=== PATIENT | male | born 1960 | race Caucasian/White ===

== ENCOUNTER 2016-12-31 21:48 | Emergency (ER) | payer MEDICAID ==
[~2016-12-31] VITALS: Ht 170.2 cm; Wt 98.0 kg
[~2016-12-31 21:48] MED LIST: ASPI-524 PO; ATOR80TA63 PO; CLOP75TA2 PO; CLOP75TA32 PO; GLIP10TA11 PO; INSU100V SQ; INSU100V26 SUBCUT; INSU100V9 SUBCUT; LIP80 PO; LISI-600 PO; LISI-694 PO; METO50TA3 PO; MULT-950 PO; OMEG1CAP10 PO; PRO40 PO; TRAM50TA92 PO; VITA1CAP PO
[2016-12-31 22:00] VITALS: BP 153/113; PULSE 85; RESP 18; TEMP 97.3; O2SAT 96
[2016-12-31] MEDS ORDERED: NACL 0.9% 1,000 ML IV ONE ×3 (22:23→23:00)
[2016-12-31] MEDS ORDERED: ONDANSETRON HCL 4 MG/2 ML VIAL IVP ONE (22:30)
[2016-12-31] MEDS ORDERED: PANTOPRAZOLE SODIUM 40 MG/VIAL (PROTONIX) IVP ONE (22:45)
[2016-12-31 23:00] VITALS: PULSE 78
[2016-12-31 23:08] LABS: BASOPHILS # (AUTO) 0.1 K/uL (0.0-0.2); EOSINOPHILS # (AUTO) 0.2 K/uL (0.0-0.4); EOSINOPHILS % (AUTO) 1.8 % (0.0-4.0); LYMPHOCYTES # (AUTO) 1.3 K/uL (1.0-5.5); MEAN CORPUSCULAR HGB CONC 33 % (32-36)
[2016-12-31 23:11] LABS: CALCIUM 8.4 mg/dL (8.4-11.0); CREATININE 4.66 mg/dL (0.55-1.30); POTASSIUM 4.7 mmol/L (3.5-5.1)
[2016-12-31 23:12] LABS: MEAN CORPUSCULAR HEMOGLOBIN 25 pg (27-31); MEAN CORPUSCULAR VOLUME 76 fL (79.0-98.0)
[2016-12-31 23:13] LABS: PROTHROMBIN TIME 11.2 SECS (9.5-12.5)
[2016-12-31 23:15] LABS: ALBUMIN 3.1 g/dL (3.4-4.8); TOTAL BILIRUBIN 0.3 mg/dL (0.0-1.0); TOTAL PROTEIN, SERUM 7.3 g/dL (6.4-8.3)
[2016-12-31 23:28] LABS: HEMOGLOBIN 11.5 g/dL (14.0-18.0); WHITE BLOOD COUNT (AUTO) 10.3 K/uL (4.8-10.8)
[2016-12-31 23:29] LABS: BASOPHILS % (AUTO) 0.9 % (0.0-2.0); LYMPHOCYTES % (AUTO) 13.1 % (20.5-51.5); MONOCYTES # (AUTO) 0.5 K/uL (0.0-1.0); MONOCYTES % (AUTO) 4.4 % (1.7-9.3); NEUTROPHILS # (AUTO) 8.2 K/uL (1.8-7.7); NEUTROPHILS % (AUTO) 79.8 % (40.0-70.0); PLATELET COUNT (AUTO) 263 K/uL (130-430)
[2016-12-31 23:46] LABS: BILIRUBIN,URINE NEGATIVE (NEGATIVE); BLOOD, URINE 1+ (NEGATIVE); CLARITY/URINE CLEAR (CLEAR); COLOR,URINE YELLOW (YELLOW); GLUCOSE,URINE 2+ (NEGATIVE); KETONES,URINE NEGATIVE (NEGATIVE); LEUKOCYTE ESTERASE ,URINE NEGATIVE (NEGATIVE); NITRITE, URINE NEGATIVE (NEGATIVE); PROTEIN URINE 3+ (NEGATIVE); UROBILINOGEN,URINE 0.2 (0.2-1.0)
[2016-12-31 23:55] VITALS: BP 132/77; RESP 18; TEMP 97.3; O2SAT 96
[2016-12-31 23:56] LABS: BACTERIA,URINE RARE /HPF (None Seen); MUCUS,URINE None Seen /LPF (None Seen); RBC,URINE 0-3 /HPF (0-3); WBC,URINE 0-3 /HPF (0-3)
== END 2016-12-31 23:55 | disposition left against medical advice (07) ==
LOC: SED 21:49
DX: K52.9 Noninfective gastroenteritis and colitis, unspecified (principal); E86.0 Dehydration; R07.89 Other chest pain; I10 Essential (primary) hypertension; E11.29 Type 2 diabetes mellitus with other diabetic kidney complication; N28.9 Disorder of kidney and ureter, unspecified; E78.5 Hyperlipidemia, unspecified; K21.9 Gastro-esophageal reflux disease without esophagitis; N19 Unspecified kidney failure; Z95.1 Presence of aortocoronary bypass graft; Z79.4 Long term (current) use of insulin
CPT/HCPCS: 36415; 74176; 80053; 81000; 83605; 83690; 84484; 85025; 85610; 87040; 89055; 93005; 96361; 96374; 96375; 99285; C9113; J2405; J7030

== ENCOUNTER 2017-12-14 16:38 | Emergency (ER) | payer OTHER, MEDICARE ==
[~2017-12-14] VITALS: Ht 170.2 cm; Wt 90.7 kg
[~2017-12-14 16:38] MED LIST changes: -ATOR80TA63 PO; -CLOP75TA32 PO; -INSU100V26 SUBCUT; -LISI-694 PO
[2017-12-14 16:47] VITALS: BP_SYST 137
[2017-12-14] MEDS ORDERED: MORPHINE 4 MG/ML INJ. SYRINGE IM ONE (17:45)
[2017-12-14 18:19] VITALS: BP_SYST 137
== END 2017-12-14 18:19 | disposition home or self-care (01) ==
LOC: SED 16:38
DX: I82.622 Acute embolism and thrombosis of deep veins of left upper extremity (principal); E78.5 Hyperlipidemia, unspecified; E11.9 Type 2 diabetes mellitus without complications; K21.9 Gastro-esophageal reflux disease without esophagitis; I10 Essential (primary) hypertension; F17.200 Nicotine dependence, unspecified, uncomplicated; Z95.1 Presence of aortocoronary bypass graft; Z79.4 Long term (current) use of insulin; Z79.899 Other long term (current) drug therapy
CPT/HCPCS: 96372; 99283; J2270

== ENCOUNTER 2018-08-14 01:36 | Inpatient (IN) | payer OTHER, MEDICAID ==
[~2018-08-14] VITALS: Ht 170.2 cm; Wt 90.4 kg
[2018-08-14] VITALS (20 sets, daily range): BP systolic 117–170
[~2018-08-14 01:36] MED LIST changes: +FISH OIL 1,01 CAP.EC PO; +METO50TA16 PO; -METO50TA3 PO; -OMEG1CAP10 PO
--- NOTE | 2018-08-14 01:36 | NUR ---
Pt BIB ALS from home with c/o mid sternal C/P that onset 1 hour ago and woke him from his sleep. Pt also c/o SOB with N/V, vomited 2-3 episodes. No vomiting, No SOB, non diaphoretic upon arrival. Pt leans to his left to help with his pain. Pt receives hemodialysis on MWF, but states that he hasn't dialyzed in 2 months as he can make urine. Abdomen round, tight, grossly distended.
[2018-08-14] MEDS ORDERED: NITROGLYCERIN 250 ML IV ONE ×2 (02:00→02:45)
[2018-08-14] MEDS ORDERED: ASPIRIN 81 MG TAB.CHEW PO ONE (02:00)
[2018-08-14] MEDS ORDERED: MORPHINE 4 MG/ML INJ. SYRINGE IVP ONE ×2 (02:00→03:15)
[2018-08-14 02:31] LABS: BASOPHILS # (AUTO) 0.1 K/uL (0.0-0.2); BASOPHILS % (AUTO) 0.7 % (0.0-2.0); EOSINOPHILS # (AUTO) 0.2 K/uL (0.0-0.4); EOSINOPHILS % (AUTO) 1.9 % (0.0-4.0); HEMATOCRIT 36.8 % (36-54); HEMOGLOBIN 12.1 g/dL (14.0-18.0); LYMPHOCYTES # (AUTO) 1.1 K/uL (1.0-5.5); LYMPHOCYTES % (AUTO) 13.4 % (20.5-51.5); MEAN CORPUSCULAR HEMOGLOBIN 27 pg (27-31); MEAN CORPUSCULAR HGB CONC 33 % (32-36); MEAN CORPUSCULAR VOLUME 82 fL (79.0-98.0); MONOCYTES # (AUTO) 0.6 K/uL (0.0-1.0); MONOCYTES % (AUTO) 7.3 % (1.7-9.3); NEUTROPHILS # (AUTO) 6.2 K/uL (1.8-7.7); NEUTROPHILS % (AUTO) 76.7 % (40.0-70.0); RED BLOOD CELL COUNT(AUTO) 4.48 MIL/uL (4.2-6.2); RED CELL DISTRIBUTION WIDTH 14.8 % (9.0-15.0); WHITE BLOOD COUNT (AUTO) 8.2 K/uL (4.8-10.8)
[2018-08-14 02:35] LABS: CALCIUM 8.3 mg/dL (8.4-11.0); CREATININE 6.7 mg/dL (0.55-1.30); POTASSIUM 4.4 mmol/L (3.5-5.1)
[2018-08-14 02:41] LABS: ALBUMIN 2.6 g/dL (3.4-4.8); TOTAL BILIRUBIN 0.7 mg/dL (0.0-1.0)
--- NOTE | 2018-08-14 02:41 | NUR ---
B/P 180/107, HR 74, pain 9/10. Pt medicated with Morphine 4 mg IVP, Nitrogylcerin 50mg/250mL drip started at 40 mcg/min (12 mL/hr) per MD order to keep SBP > 100.
[2018-08-14 02:49] LABS: INR 1.2 (0.80-1.20); PROTHROMBIN TIME 11.9 SECS (9.5-12.5)
--- NOTE | 2018-08-14 02:49 | NUR ---
Pt at bedside to bring home medications. Updated on POC.
[2018-08-14 02:55] LABS: PLATELET COUNT (AUTO) 212 K/uL (130-430)
--- NOTE | 2018-08-14 03:05 | NUR ---
Note brentone in EDM - 08/14/18 at 0325 by [email or web address] Pt continues to c/o mid chest pain at 04/27. Dr. Phelps informed. NTG drip increased to 50 mcg/min, to be medicated with Morphine 4 mg IVP.
--- NOTE | 2018-08-14 03:05 | NUR ---
Pt continues to c/o mid chest pain at 04/27. Dr. Phelps informed. NTG drip increased to 50 mcg/min, to be medicated with Morphine 4 mg IVP.
[2018-08-14] MEDS ORDERED: ASPIRIN 81 MG TAB.CHEW ONE (03:13)
[2018-08-14] MEDS ORDERED: TAMS-11 PO (03:21)
[2018-08-14] MEDS ORDERED: ERGO500020 PO (03:22)
[2018-08-14] MEDS ORDERED: FURO80TA86 PO (03:23)
[2018-08-14] MEDS ORDERED: METO5TAB8 PO (03:25)
[2018-08-14] MEDS ORDERED: LOSA25TA11 PO (03:27)
--- NOTE | 2018-08-14 03:30 | NUR ---
Pt resting quietly, even and non-labored respirations, NAD.
[2018-08-14] MEDS ORDERED: METO-542 PO (03:31)
[2018-08-14] MEDS ORDERED: FENO160 PO (03:36)
[2018-08-14] MEDS ORDERED: FOLI-43 PO (03:39)
[2018-08-14] MEDS ORDERED: FERR-31 PO (03:42)
[2018-08-14] MEDS ORDERED: FLUT9.9S NS (03:52)
[2018-08-14] MEDS ORDERED: NITSL SL (03:54)
--- NOTE | 2018-08-14 04:00 | NUR ---
Resting quietly, even and non-labored respirations. NTG drip continues to infuse to patent PIV RHA. NAD.
--- NOTE | 2018-08-14 04:26 | NUR ---
X-ray at bedside.
--- NOTE | 2018-08-14 04:44 | NUR ---
Pt resting quietly with eyes closed, even and non-labored respirations, VSS.
[2018-08-14] MEDS ORDERED: FUROSEMIDE 40 MG/4 ML VIAL IVP ONE (05:00)
--- NOTE | 2018-08-14 05:25 | NUR ---
Patient will be admitted to care of Dr. Cook. Admitted to ICU unit. Will go to room 3. Summary report printed. Report will be given at bedside.
--- NOTE | 2018-08-14 05:45 | NUR ---
RECEIVED PT VIA NATASHA FROM ER, ALERT, ORIENTED AND COOPERATIVE.HAS IV , NITROGLYCERINE DRIP INFUSING VIA RT HAND AT 50 MCG/MIN.TRANSFERRED SELF TO BED, AND ROUTINE ADM CARE DONE.DENIES ANY CHEST PAIN THIS TIME.
[2018-08-14] MEDS: INSULIN REGULAR, HUMAN 100 UNITS/ML, 10 ML VIAL (novoLIN R) SUBCUT PRN ×4 (06:51→21:14)
--- NOTE | 2018-08-14 07:31 | NUR ---
Called Dr. Clark with a consult, spoke with Philippe from the exchange
--- NOTE | 2018-08-14 07:49 | NUR ---
Called Dr. Gibson with a consult, spoke with Yoon from the exchange Dr. Hattie Sheldon hooker on today
--- NOTE | 2018-08-14 07:50 | NUR ---
OPENING NOTE Patient received laying down and is SOB while attempting to move. Assisted with repositioning in an upright position. Patient is alert and oriented. Patient has a right hand peripheral IV 20 gauge infusing Nitroglycerin @ 50 mcg/min. Cardiac rhythm is NSR with PVCs. No chest discomfort reported. Pain mostly felt while getting himself on the right side. Patient on a CCHO diet. Tray has been served. Skin intact but very dry and has pimple-like spots all over his body. HOB raised, bed at lowest position, call in reach.
--- NOTE | 2018-08-14 08:05 | NUR ---
Patient asks to stand up to void. Patient was given a urinal. Sample collected and taken to lab.
--- NOTE | 2018-08-14 08:25 | NUR ---
Dr. Cook Rounds Dr. Cook at bedside. Patient struggles to breathe and had noticeable shayne on the monitor. O2 2L by NC ordered and carried out.
[2018-08-14] MEDS ORDERED: traMADol HCL HCL 50 MG TABLET (ULTRAM) PO PRN (08:30)
[2018-08-14] MEDS ORDERED: NON-FORMULARY MEDICATION (Ergocalciferol (Vitamin D2) (Vitamin D2) 50,000 UNIT) PO SCH (08:30)
[2018-08-14] MEDS ORDERED: NITROGLYCERIN 0.4 MG TAB.SUBL SL PRN (08:30)
--- NOTE | 2018-08-14 08:37 | NUR ---
Dr. Chavarria aware of consult(acidosis, resp insuff)
--- NOTE | 2018-08-14 08:40 | NUR ---
ADOPTION SERVICES MANAGER Dr. Chavarria at bedside for evaluation.
[2018-08-14] MEDS ORDERED: IPRATROPIUM BROM 0.5 MG/2.5 ML VIAL.NEB (ATROVENT) INH PRN (08:45)
[2018-08-14] MEDS ORDERED: MAGNESIUM SULFATE 50 ML IV PRN (08:45)
[2018-08-14] MEDS ORDERED: ALBUTEROL SULFATE 0.083% 2.5 MG/3 ML VIAL.NEB INH PRN (08:45)
[2018-08-14] MEDS ORDERED: MORPHINE 4 MG/ML INJ. SYRINGE IVP PRN ×2 (08:45)
[2018-08-14] MEDS ORDERED: DOCUSATE SODIUM 100 MG CAPSULE PO PRN (08:45)
[2018-08-14] MEDS ORDERED: ACETAMINOPHEN 325 MG TABLET PO PRN (08:45)
[2018-08-14] MEDS ORDERED: LORazepam 2 MG/ML VIAL IVP PRN (08:45)
[2018-08-14] MEDS ORDERED: ONDANSETRON HCL 4 MG/2 ML VIAL IVP PRN (08:45)
[2018-08-14] MEDS ORDERED: POTASSIUM CHLORIDE 20 MEQ TAB.PRT.SR PO PRN (08:45)
[2018-08-14] MEDS ORDERED: methylPREDNISolone SOD SUCC 40 MG/ML VIAL IVP ONE (08:45)
[2018-08-14] MEDS ORDERED: ZOLPIDEM TARTRATE 5 MG TABLET PO PRN (08:45)
[2018-08-14] MEDS ORDERED: MUPIROCIN 2% TOPICAL OINTMENT 22 GM NS PRN (08:45)
[2018-08-14 08:52] LABS: BILIRUBIN,URINE NEGATIVE (NEGATIVE); BLOOD, URINE 2+ (NEGATIVE); CLARITY/URINE CLEAR (CLEAR); COLOR,URINE YELLOW (YELLOW); GLUCOSE,URINE 2+ (NEGATIVE); KETONES,URINE NEGATIVE (NEGATIVE); LEUKOCYTE ESTERASE ,URINE NEGATIVE (NEGATIVE); NITRITE, URINE NEGATIVE (NEGATIVE); PH,URINE 5.5 (5.0-8.0); PROTEIN URINE 3+ (NEGATIVE); UROBILINOGEN,URINE 0.2 (0.2-1.0)
[2018-08-14] MEDS ORDERED: ASPIRIN 81 MG TAB.CHEW PO SCH (09:00)
[2018-08-14 09:06] LABS: BACTERIA,URINE FEW /HPF (None Seen); MUCUS,URINE None Seen /LPF (None Seen); RBC,URINE 0-3 /HPF (0-3); WBC,URINE 0-3 /HPF (0-3)
[2018-08-14] MEDS: FUROSEMIDE 40 MG/4 ML VIAL IVP SCH (09:37)
[2018-08-14] MEDS: FERROUS SULFATE 325 MG TABLET.DR PO SCH ×2 (09:42→20:57)
[2018-08-14] MEDS: FLUTICASONE PROPIONATE 50 mCg/SPRAY 16 GM NS SCH (09:42)
[2018-08-14] MEDS: ATORVASTATIN 20 MG TABLET PO SCH (09:42)
[2018-08-14] MEDS: FOLIC ACID 1 MG TABLET PO SCH (09:43)
[2018-08-14] MEDS: FENOFIBRATE 160 MG TABLET PO SCH (09:44)
[2018-08-14] MEDS: LISINOPRIL 20 MG TABLET PO SCH (09:44)
[2018-08-14] MEDS: CLOPIDOGREL BISULFATE 75 MG TABLET PO SCH (09:44)
[2018-08-14] MEDS: TAMSULOSIN HCL 0.4 MG CAP PO SCH (09:44)
--- NOTE | 2018-08-14 09:44 | NUR ---
TEST. PT HAVING AN ECHOCARDIOGRAM AT THIS HOUR. RESEARCH ADMINISTRATOR CAME OUT OF THE ROOM TO ASK FOR DR ALVARES. RETURNED TO ICU, LOOKED INTO PT'S ECHOCARDIOGRAM MONITOR. AWARE OF EJECTION FRACTION REPORT.
[2018-08-14] MEDS: METOLAZONE 5 MG TABLET PO SCH (09:45)
[2018-08-14] MEDS: HEPARIN SODIUM,PORCINE 5000 UNITS/ML VIAL SUBCUT SCH ×2 (09:48→21:18)
[2018-08-14] MEDS: cefTRIAXone 1 GM in D5W 50 ML IV SCH (09:51)
--- NOTE | 2018-08-14 11:29 | NUR ---
Nutrition Update Chinedu Scale 16 noted. Pt admitted for ventricular tachycardia. Diet: CCHO, renal BMI: 31.2 kg/m2 RD to follow per nutrition care standards.
--- NOTE | 2018-08-14 16:50 | NUR ---
RN Rounds Patient's at bedside. Answered questions pertaining POC. Patient has SOB upon exertion, but O2 saturation remain within normal limits. Patient remains on 2L O2 by NC. Performed CHG bath with 's assistance. HOB raised > 30 degrees, bed at lowest position, and call light within reach.
[2018-08-14] MEDS: ALBUTEROL SULFATE 0.083% 2.5 MG/3 ML VIAL.NEB INH SCH (19:00)
[2018-08-14] MEDS: IPRATROPIUM BROM 0.5 MG/2.5 ML VIAL.NEB (ATROVENT) INH SCH (19:00)
--- NOTE | 2018-08-14 19:20 | NUR ---
CLOSING NOTE Endorsed patient to Natali JIMENEZ. Patent is asleep comfortably in bed at this time. No distress noted.
--- NOTE | 2018-08-14 19:25 | NUR ---
PM SHIFT ASSESSMENT Pt is alert and oriented. SPO2 via NC sating at 95%. SR noted on monitor. Skin intact. Pt uses urinal to void. IV to right hand SL. Safety precautions in place, call light within reach. Will continue to monitor.
--- NOTE | 2018-08-14 21:50 | NUR ---
PT BELONGINGS Pts came in and brought pt a cell phone airline ticket agent. Will update pt belongings list.
[2018-08-15] VITALS (8 sets, daily range): BP systolic 111–149
[2018-08-15] MEDS: ALBUTEROL SULFATE 0.083% 2.5 MG/3 ML VIAL.NEB INH SCH ×2 (00:30→07:00)
[2018-08-15] MEDS: IPRATROPIUM BROM 0.5 MG/2.5 ML VIAL.NEB (ATROVENT) INH SCH ×2 (00:30→07:00)
--- NOTE | 2018-08-15 05:15 | NUR ---
Pt states, "I do not want dialysis, there is no reason why I just don't want it." Education was provided on benefits and risks. Pt still refuses dialysis treatment to be done today. Will continue to monitor.
[2018-08-15 06:25] LABS: BASOPHILS # (AUTO) 0.1 K/uL (0.0-0.2); EOSINOPHILS % (AUTO) 0.5 % (0.0-4.0); HEMATOCRIT 37.5 % (36-54); HEMOGLOBIN 11.6 g/dL (14.0-18.0); LYMPHOCYTES # (AUTO) 0.8 K/uL (1.0-5.5); MEAN CORPUSCULAR HEMOGLOBIN 27 pg (27-31); MEAN CORPUSCULAR HGB CONC 31 % (32-36); MEAN CORPUSCULAR VOLUME 86 fL (79.0-98.0); MONOCYTES # (AUTO) 0.4 K/uL (0.0-1.0); MONOCYTES % (AUTO) 5.4 % (1.7-9.3); NEUTROPHILS # (AUTO) 5.3 K/uL (1.8-7.7); PLATELET COUNT (AUTO) 193 K/uL (130-430); RED BLOOD CELL COUNT(AUTO) 4.37 MIL/uL (4.2-6.2); RED CELL DISTRIBUTION WIDTH 15.2 % (9.0-15.0); WHITE BLOOD COUNT (AUTO) 6.6 K/uL (4.8-10.8)
[2018-08-15 06:41] LABS: CALCIUM 8.8 mg/dL (8.4-11.0); CREATININE 7.36 mg/dL (0.55-1.30); POTASSIUM 4.8 mmol/L (3.5-5.1)
[2018-08-15 06:55] LABS: ALBUMIN 2.6 g/dL (3.4-4.8); THYROID STIMULATING HORMONE 1.96 uIu/mL (0.36-3.74); TOTAL BILIRUBIN 0.6 mg/dL (0.0-1.0)
--- NOTE | 2018-08-15 07:00 | NUR ---
Pt was asked again if he would like dialysis treatment today, pt stated, "I do not want dialysis, I want my breakfast." Pt educated again on benefits and risks of treatment, however pt still refuses dialysis. Will notify MD and dayshift nurse.
--- NOTE | 2018-08-15 07:30 | NUR ---
ENDORSEMENT Pt care endorsed to BARBARA Lema at bedside using nursing SBAR.
[2018-08-15] MEDS: INSULIN REGULAR, HUMAN 100 UNITS/ML, 10 ML VIAL (novoLIN R) SUBCUT PRN (07:43)
--- NOTE | 2018-08-15 07:45 | NUR ---
AM ASSESSMENT. PT SEEN SITTING UP AT THE EDGE OF HIS BED, STATED "WHERE IS MY BREAKFAST?, NEEDS ATTENDED, TRAY SERVED, PT COMPLAINED OF DISCOMFORT TO HIS LEG, ENCOURAGED TO ELEVATE HIS FEET IN BED AFTER HIS MEAL, ALL OTHER NEEDS MET.
[2018-08-15] MEDS: FLUTICASONE PROPIONATE 50 mCg/SPRAY 16 GM NS SCH (08:26)
[2018-08-15] MEDS: METOLAZONE 5 MG TABLET PO SCH (08:27)
[2018-08-15] MEDS: CLOPIDOGREL BISULFATE 75 MG TABLET PO SCH (08:28)
[2018-08-15] MEDS: TAMSULOSIN HCL 0.4 MG CAP PO SCH (08:28)
[2018-08-15] MEDS: ATORVASTATIN 20 MG TABLET PO SCH (08:28)
[2018-08-15] MEDS: FENOFIBRATE 160 MG TABLET PO SCH (08:28)
[2018-08-15] MEDS: FERROUS SULFATE 325 MG TABLET.DR PO SCH (08:28)
[2018-08-15] MEDS: LISINOPRIL 20 MG TABLET PO SCH (08:29)
[2018-08-15] MEDS: cefTRIAXone 1 GM in D5W 50 ML IV SCH (08:29)
[2018-08-15] MEDS: FOLIC ACID 1 MG TABLET PO SCH (08:29)
--- NOTE | 2018-08-15 08:30 | NUR ---
PAIN. PT MEDICATED WITH TRAMADOL TABLET ORDERED FOR LEG DISCOMFORT.
[2018-08-15] MEDS: FUROSEMIDE 40 MG/4 ML VIAL IVP SCH (08:38)
[2018-08-15] MEDS: HEPARIN SODIUM,PORCINE 5000 UNITS/ML VIAL SUBCUT SCH (08:45)
--- NOTE | 2018-08-15 08:55 | NUR ---
Dr. Cook in to see pt. Explained to patient that he needs dialysis. The patient does not want dialysis at this hospital. Dr. Cook tried to explain the reason. The patient said he is not in the hospital for dialyisis, he is here for something else and that we need to call his PCP and renal doctor. The patient interrupted Dr. Cook many times when he tried to tell the pt that because he needs dialysis is why his heart is acting up. The patient spoke over Dr. Cook the whole time. Dr. Cook told the patient there isn't anything he can do for him, because he needs dialysis today and he can leave and go home against medical advice. The patient said ok.
--- NOTE | 2018-08-15 09:05 | NUR ---
Pt is on the phone calling his to come and pick him up.
--- NOTE | 2018-08-15 09:24 | NUR ---
Pts is here to crop picker pt. Pt has signed AMA paperwork as well as .
--- NOTE | 2018-08-15 09:32 | NUR ---
Dr. Clark in to see pt as he is leaving in the wheelchair. He spoke at length about his need for dialysis and treatment for his heart attack. The patient told Dr. Clark that he didn't know how to treat a heart attack and that he is leaving right now to go get dialysis in [place]. Dr. Clark asked the pts who came to pick him up, if she was taking him to dialysis in [place]. She said it was up to him and then he interrupted and said he was going to speak to his PCP first. The patient had no questions and neither did his . Pt's IV was removed and the pt was discharged to private auto via wheelchair by bedside RN. with pt and will drive him home. The patient expressed no complaints of pain or anything else, other than not wanting to be in this hospital.
[2018-08-15 09:37] LABS: NEUTROPHILS % (AUTO) 81.1 % (40.0-70.0)
== END 2018-08-15 09:32 | disposition left against medical advice (07) | DRG 682 ==
LOC: SED 01:36 → SIC 05:03
PROVIDERS: ADMIT General Practice; ATTEND General Practice
PROC: 5A1D70Z Performance of Urinary Filtration, Intermittent, Less than 6 Hours Per Day (ICD-10-PCS; principal; 2018-08-14)
DX: N17.0 Acute kidney failure with tubular necrosis (principal); I50.43 Acute on chronic combined systolic (congestive) and diastolic (congestive) heart failure; I13.2 Hypertensive heart and chronic kidney disease with heart failure and with stage 5 chronic kidney disease, or end stage renal disease; E44.0 Moderate protein-calorie malnutrition; E87.2 Acidosis; I47.2 Ventricular tachycardia; J44.0 Chronic obstructive pulmonary disease with (acute) lower respiratory infection; J44.1 Chronic obstructive pulmonary disease with (acute) exacerbation; N18.6 End stage renal disease; I25.10 Atherosclerotic heart disease of native coronary artery without angina pectoris; E11.65 Type 2 diabetes mellitus with hyperglycemia; E11.21 Type 2 diabetes mellitus with diabetic nephropathy; E11.22 Type 2 diabetes mellitus with diabetic chronic kidney disease; E11.51 Type 2 diabetes mellitus with diabetic peripheral angiopathy without gangrene; E78.5 Hyperlipidemia, unspecified; F17.210 Nicotine dependence, cigarettes, uncomplicated; I25.5 Ischemic cardiomyopathy; J20.9 Acute bronchitis, unspecified; E78.00 Pure hypercholesterolemia, unspecified; K21.9 Gastro-esophageal reflux disease without esophagitis; N40.0 Benign prostatic hyperplasia without lower urinary tract symptoms; Z53.21 Procedure and treatment not carried out due to patient leaving prior to being seen by health care provider; W18.39XA Other fall on same level, initial encounter; Z79.4 Long term (current) use of insulin; Z82.49 Family history of ischemic heart disease and other diseases of the circulatory system; Z86.79 Personal history of other diseases of the circulatory system; Z91.15 Patient's noncompliance with renal dialysis; Z91.19 Patient's noncompliance with other medical treatment and regimen; Z95.1 Presence of aortocoronary bypass graft; Z99.2 Dependence on renal dialysis; Z68.31 Body mass index [BMI] 31.0-31.9, adult; Z79.899 Other long term (current) drug therapy; Y93.89 Activity, other specified; Y92.89 Other specified places as the place of occurrence of the external cause; Y99.8 Other external cause status
CPT/HCPCS: 36415; 36600; 71045; 72170-TC; 73564; 80053; 80061; 81000-TC; 82009-TC; 82803-TC; 82962; 83036; 83605; 83735-TC; 83880; 84443-TC; 84484; 85025; 85610-TC; 85730-TC; 87040-TC; 87081; 87086; 93005; 93306; 96374; 96375; 99291; J0696; J1030; J1644; J1815; J1940; J2270; J3490; J7060; J7613

== ENCOUNTER 2018-11-24 13:56 | Emergency (ER) | payer OTHER, MEDICAID ==
[~2018-11-24] VITALS: Ht 170.2 cm; Wt 99.8 kg
[~2018-11-24 13:56] MED LIST changes: +ERGO500020 PO; +FENO160 PO; +FERR-31 PO; +FLUT9.9S NS; +FOLI-43 PO; +FURO80TA86 PO; +LOSA25TA18 PO; +METO-542 PO; -METO50TA16 PO; +METO5TAB8 PO; +NITSL SL; +TAMS-11 PO
[2018-11-24 14:21] VITALS: BP_SYST 104
--- NOTE | 2018-11-24 14:25 | NUR ---
Patient to ER bed 5 to gown for evaluation. Side rails up.
--- NOTE | 2018-11-24 14:30 | NUR ---
SLIME Edmond at bedside examining patient.
[2018-11-24] MEDS: HYDROcodone/ACETAMIN 5-325 MG TAB (NORCO/ VICODIN) PO ONE (14:45)
--- NOTE | 2018-11-24 15:00 | NUR ---
medications given as ordered.
[2018-11-24 16:10] VITALS: BP_SYST 111
--- NOTE | 2018-11-24 16:10 | NUR ---
Patient given written and verbal discharge instructions and verbalizes understanding. ER MD discussed with patient the results and treatment provided. Patient in stable condition. ID arm band removed. Rx of Lidocaine, [place] 5/325 given. Patient educated on pain management and to follow up with PMD. Pain Scale 0/10. Opportunity for questions provided and answered. Medication side effect fact sheet provided.
== END 2018-11-24 16:10 | disposition home or self-care (01) ==
LOC: SED 13:56
DX: M54.6 Pain in thoracic spine (principal)
CPT/HCPCS: 71046-TC; 93005; 99283

== ENCOUNTER 2019-01-20 19:24 | Emergency (ER) | payer OTHER, MEDICAID ==
[~2019-01-20] VITALS: Ht 170.2 cm; Wt 86.2 kg
--- NOTE | 2019-01-20 19:30 | NUR ---
Patient to ER bed 03 for evaluation. Side rails up.
[2019-01-20 19:34] VITALS: BP_SYST 115
--- NOTE | 2019-01-20 19:39 | NUR ---
Pt AAOx4 ambulated into ED requesting blood work. Pt states he is getting an angiogram tomorrow and his PCP requires his potassium levels. PT also c/o 10/10 R lower leg pain r/t possible DVT. No other injuries/complaints per pt/noted. Will continue to monitor.
--- NOTE | 2019-01-20 19:51 | NUR ---
ER Dr. Cordova at bedside examining patient.
[2019-01-20] MEDS ORDERED: MORPHINE 4 MG/ML INJ. SYRINGE IM ONE (20:00)
--- NOTE | 2019-01-20 20:09 | NUR ---
Medication administered. PT tolerated well. No adverse reactions noted.
--- NOTE | 2019-01-20 20:12 | NUR ---
Radiology at bedside for XR
[2019-01-20 20:20] LABS: BASOPHILS # (AUTO) 0.1 K/uL (0.0-0.2); BASOPHILS % (AUTO) 1.3 % (0.0-2.0); EOSINOPHILS # (AUTO) 0.1 K/uL (0.0-0.4); EOSINOPHILS % (AUTO) 1.3 % (0.0-4.0); HEMATOCRIT 34.4 % (36-54); LYMPHOCYTES # (AUTO) 1.1 K/uL (1.0-5.5); LYMPHOCYTES % (AUTO) 11.1 % (20.5-51.5); MEAN CORPUSCULAR HEMOGLOBIN 26 pg (27-31); MEAN CORPUSCULAR HGB CONC 32 % (32-36); MEAN CORPUSCULAR VOLUME 81 fL (79.0-98.0); MONOCYTES # (AUTO) 0.8 K/uL (0.0-1.0); MONOCYTES % (AUTO) 8.6 % (1.7-9.3); NEUTROPHILS # (AUTO) 7.6 K/uL (1.8-7.7); NEUTROPHILS % (AUTO) 77.7 % (40.0-70.0); PLATELET COUNT (AUTO) 427 K/uL (130-430); RED BLOOD CELL COUNT(AUTO) 4.24 MIL/uL (4.2-6.2); RED CELL DISTRIBUTION WIDTH 17.5 % (9.0-15.0); WHITE BLOOD COUNT (AUTO) 9.8 K/uL (4.8-10.8)
[2019-01-20 20:30] LABS: CREATININE 5.45 mg/dL (0.55-1.30)
[2019-01-20 20:35] LABS: ALBUMIN 2.7 g/dL (3.4-4.8); TOTAL BILIRUBIN 0.6 mg/dL (0.0-1.0)
--- NOTE | 2019-01-20 20:39 | NUR ---
Dr. Cordova at bedside discussing pt results
[2019-01-20 20:58] LABS: ERYTHROCYTE SEDIMENTATION RATE 67 MM/HR (0-15)
--- NOTE | 2019-01-20 21:28 | NUR ---
PT reports he is full code
[2019-01-20] MEDS ORDERED: GLIP-201 PO (21:30)
--- NOTE | 2019-01-20 21:30 | NUR ---
Medication reconciliation completed with information provided by pt. Any prior medication reconciliation on file was reviewed and corrected.
[2019-01-20] MEDS ORDERED: fentaNYL CITRATE/PF 100 MCG/2 ML AMP IVP ONE ×2 (22:00→22:15)
[2019-01-20] MEDS ORDERED: fentaNYL CITRATE/PF 100 MCG/2 ML AMP IM ONE (22:15)
--- NOTE | 2019-01-20 22:37 | NUR ---
Patient given written and verbal discharge instructions and verbalizes understanding. ER MD discussed with patient the results and treatment provided. Patient in stable condition. ID arm band removed. IV catheter removed intact and dressing applied, no active bleeding. No Rx given. Patient educated on pain management and to follow up with PMD. Pain Scale 0. Opportunity for questions provided and answered. Medication side effect fact sheet provided.
[2019-01-20 22:38] VITALS: BP_SYST 119
== END 2019-01-20 22:37 | disposition home or self-care (01) ==
LOC: SED 19:24
DX: M79.675 Pain in left toe(s) (principal); L53.9 Erythematous condition, unspecified; E11.9 Type 2 diabetes mellitus without complications; E78.5 Hyperlipidemia, unspecified; Z79.84 Long term (current) use of oral hypoglycemic drugs; Z79.899 Other long term (current) drug therapy; Z86.79 Personal history of other diseases of the circulatory system
CPT/HCPCS: 36415; 73630; 80053; 85025; 85651; 96372; 96374; 99284; J2270; J3010

== ENCOUNTER 2019-01-23 23:47 | Emergency (ER) | payer OTHER, MEDICAID ==
[~2019-01-23] VITALS: Ht 170.2 cm; Wt 86.2 kg
[2019-01-23 23:47] VITALS: BP_SYST 124
[~2019-01-23 23:47] MED LIST changes: -CLOP75TA2 PO; +GLIP-201 PO; -GLIP10TA11 PO; -LISI-600 PO; -NITSL SL; -TRAM50TA92 PO
[2019-01-24] MEDS ORDERED: ISOS40TA17 PO (00:20)
[2019-01-24] MEDS ORDERED: GLIP10TA21 PO (00:20)
[2019-01-24] MEDS ORDERED: CALC667T5 PO (00:20)
[2019-01-24] MEDS ORDERED: MOME13HF2 INH (00:20)
[2019-01-24] MEDS ORDERED: [UNRECOGNIZED DRUG - OTHER] (00:20)
[2019-01-24] MEDS ORDERED: SPIRIVA INH (00:20)
[2019-01-24] MEDS ORDERED: FURO-149 PO (00:20)
[2019-01-24 00:49] LABS: BASOPHILS % (AUTO) 0.2 % (0.0-2.0); EOSINOPHILS # (AUTO) 0.2 K/uL (0.0-0.4); HEMOGLOBIN 10.4 g/dL (14.0-18.0); LYMPHOCYTES # (AUTO) 1.6 K/uL (1.0-5.5); MEAN CORPUSCULAR HEMOGLOBIN 25 pg (27-31); MEAN CORPUSCULAR HGB CONC 32 % (32-36); MEAN CORPUSCULAR VOLUME 80 fL (79.0-98.0); NEUTROPHILS % (AUTO) 73.8 % (40.0-70.0); PLATELET COUNT (AUTO) 369 K/uL (130-430); RED CELL DISTRIBUTION WIDTH 17.7 % (9.0-15.0); WHITE BLOOD COUNT (AUTO) 10.9 K/uL (4.8-10.8)
[2019-01-24 01:24] LABS: CALCIUM 9.3 mg/dL (8.4-11.0); CREATININE 7.11 mg/dL (0.55-1.30); POTASSIUM 5.1 mmol/L (3.5-5.1)
[2019-01-24 01:27] LABS: INR 1.2 (0.80-1.20)
[2019-01-24] MEDS ORDERED: IPRATROPIUM/ALBUTEROL SULFATE 3 ML AMPUL.NEB (DUONEB) INH ONE (01:30)
[2019-01-24 01:31] LABS: ALBUMIN 2.6 g/dL (3.4-4.8); TOTAL BILIRUBIN 0.6 mg/dL (0.0-1.0)
[2019-01-24] MEDS ORDERED: MORPHINE 4 MG/ML INJ. SYRINGE IVP ONE ×2 (02:00→04:00)
[2019-01-24 05:00] VITALS: BP_SYST 105
== END 2019-01-24 05:00 | disposition short-term general hospital (02) ==
LOC: SED 23:47
DX: I73.89 Other specified peripheral vascular diseases (principal); E78.5 Hyperlipidemia, unspecified; J44.9 Chronic obstructive pulmonary disease, unspecified; K21.9 Gastro-esophageal reflux disease without esophagitis; I12.9 Hypertensive chronic kidney disease with stage 1 through stage 4 chronic kidney disease, or unspecified chronic kidney disease; E11.22 Type 2 diabetes mellitus with diabetic chronic kidney disease; N18.9 Chronic kidney disease, unspecified; Z86.718 Personal history of other venous thrombosis and embolism; Z79.899 Other long term (current) drug therapy
CPT/HCPCS: 36415; 80053; 85025; 85379; 85610; 93923; 93971; 94640; 96374; 96376; 99285; J2270; J7620

== ENCOUNTER 2019-02-08 20:39 | Inpatient (IN) | payer OTHER, MEDICAID ==
[~2019-02-08] VITALS: Ht 170.2 cm; Wt 93.1 kg
[~2019-02-08 20:39] MED LIST changes: +CALC667T5 PO; -FISH OIL 1,01 CAP.EC PO; -FLUT9.9S NS; +FURO-149 PO; -FURO80TA86 PO; -GLIP-201 PO; +GLIP10TA21 PO; -INSU100V9 SUBCUT; +ISOS40TA17 PO; +MOME13HF2 INH; -MULT-950 PO; +SPIRIVA INH; -TAMS-11 PO; -VITA1CAP PO; +[UNRECOGNIZED DRUG - OTHER]
[2019-02-08 20:47] VITALS: BP_SYST 132
[2019-02-08] MEDS ORDERED: DIPHENHYDRAMINE INJ 50 MG/ML VIAL IVP ONE (21:15)
[2019-02-08] MEDS ORDERED: MORPHINE 4 MG/ML INJ. SYRINGE IVP ONE ×2 (21:15→22:00)
[2019-02-08] MEDS ORDERED: cefTRIAXone 1 GM IVPB PREMIX 50 ML IV ONE (21:15)
[2019-02-08 21:37] LABS: BASOPHILS % (AUTO) 0.3 % (0.0-2.0); EOSINOPHILS # (AUTO) 0.3 K/uL (0.0-0.4); EOSINOPHILS % (AUTO) 2.7 % (0.0-4.0); HEMATOCRIT 31.9 % (36-54); HEMOGLOBIN 10.1 g/dL (14.0-18.0); LYMPHOCYTES % (AUTO) 10.1 % (20.5-51.5); MEAN CORPUSCULAR HEMOGLOBIN 26 pg (27-31); MEAN CORPUSCULAR HGB CONC 32 % (32-36); MEAN CORPUSCULAR VOLUME 81 fL (79.0-98.0); MONOCYTES # (AUTO) 0.8 K/uL (0.0-1.0); MONOCYTES % (AUTO) 8.5 % (1.7-9.3); NEUTROPHILS # (AUTO) 7.6 K/uL (1.8-7.7); NEUTROPHILS % (AUTO) 78.4 % (40.0-70.0); PLATELET COUNT (AUTO) 368 K/uL (130-430); RED BLOOD CELL COUNT(AUTO) 3.95 MIL/uL (4.2-6.2); RED CELL DISTRIBUTION WIDTH 20.2 % (9.0-15.0); WHITE BLOOD COUNT (AUTO) 9.7 K/uL (4.8-10.8)
[2019-02-08 21:53] LABS: CALCIUM 9.4 mg/dL (8.4-11.0); CREATININE 6.28 mg/dL (0.55-1.30); POTASSIUM 4.6 mmol/L (3.5-5.1)
[2019-02-08 21:58] LABS: ALBUMIN 2.4 g/dL (3.4-4.8); TOTAL BILIRUBIN 0.7 mg/dL (0.0-1.0)
[2019-02-08] MEDS ORDERED: ONDANSETRON HCL 4 MG/2 ML VIAL IVP ONE (22:00)
[2019-02-08 22:26] LABS: INR 1.4 (0.80-1.20); PROTHROMBIN TIME 13.8 SECS (9.5-12.5)
[2019-02-08] MEDS ORDERED: fentaNYL CITRATE/PF 100 MCG/2 ML AMP IVP ONE ×2 (23:00→23:30)
[2019-02-08] MEDS ORDERED: LORazepam 2 MG/ML VIAL (FOR ER USE) IVP ONE (23:30)
[2019-02-09] MEDS ORDERED: fentaNYL CITRATE/PF 100 MCG/2 ML AMP IVP ONE ×2 (01:45→02:45)
[2019-02-09] MEDS ORDERED: VANCOMYCIN HCL 1,000 MG in NS 250 ML IV ONE (02:45)
[2019-02-09] MEDS ORDERED: VANCOMYCIN HCL 1000 MG/VIAL IV ONE (03:10)
[2019-02-09] MEDS ORDERED: fentaNYL CITRATE/PF 100 MCG/2 ML AMP IVP PRN ×2 (03:15)
[2019-02-09] MEDS ORDERED: *HEPARIN PER PHARMACY XX PRN (03:15)
[2019-02-09] MEDS ORDERED: HEPARIN SODIUM,PORCINE 2000 UNITS/0.4 ML BOLUS IVP PRN (03:30)
[2019-02-09 03:51] VITALS: BP_SYST 115
[2019-02-09] MEDS ORDERED: HEPARIN SODIUM,PORCINE 5000 UNITS/ML VIAL IV SCH (04:00)
[2019-02-09] MEDS ORDERED: DEXTROSE 50%-WATER 50 ML DISP.SYRIN IVP PRN (04:30)
[2019-02-09] MEDS ORDERED: D5W 1,000 ML IV PRN (04:30)
[2019-02-09] MEDS: HEPARIN 25,000 UNITS in 250 ML PREMIX IV PRN ×2 (05:17→12:05)
[2019-02-09 08:55] VITALS: BP_SYST 136
[2019-02-09] MEDS ORDERED: NON-FORMULARY MEDICATION (Mometasone/Formoterol* (Dulera 100 Mcg/5 Mcg Inhaler*) 2 PUFF) INH SCH (09:00)
[2019-02-09] MEDS ORDERED: PIPERACILLIN/TAZO 3.375/DEX-IS 50 ML IV SCH (09:00)
[2019-02-09] MEDS ORDERED: PIPERACILLIN/TAZOBACTAM 2.25 GM/ D5W 50 ML IV SCH ×2 (09:30)
[2019-02-09] MEDS: CILOSTAZOL 50 MG TABLET (PLETAL) PO SCH ×2 (10:06→20:08)
[2019-02-09] MEDS: ASPIRIN 325 MG TABLET (ECOTRIN) PO SCH (10:06)
[2019-02-09] MEDS: ALBUTEROL SULFATE 0.083% 2.5 MG/3 ML VIAL.NEB INH SCH ×4 (11:06→23:00)
[2019-02-09] MEDS: IPRATROPIUM BROM 0.5 MG/2.5 ML VIAL.NEB (ATROVENT) INH SCH ×4 (11:06→23:00)
[2019-02-09] MEDS ORDERED: BUDESONIDE 0.5 MG/2 ML AMPUL.NEB INH ONE (11:30)
[2019-02-09] MEDS: CALCIUM ACETATE 667 MG CAP PO SCH ×2 (11:47→18:07)
[2019-02-09] MEDS: fentaNYL CITRATE/PF 100 MCG/2 ML AMP IVP PRN ×4 (11:57→23:23)
[2019-02-09] MEDS: PANTOPRAZOLE SODIUM 40 MG TAB PO SCH (12:11)
[2019-02-09] MEDS: FUROSEMIDE 40 MG TABLET PO SCH (12:12)
[2019-02-09] MEDS: FOLIC ACID 1 MG TABLET PO SCH (12:12)
[2019-02-09] MEDS: FENOFIBRATE 160 MG TABLET PO SCH (12:12)
[2019-02-09] MEDS: ATORVASTATIN 20 MG TABLET PO SCH (12:12)
[2019-02-09] MEDS: METOLAZONE 5 MG TABLET PO SCH (12:13)
[2019-02-09] MEDS: glipiZIDE XL 5 MG TAB ( GLUCOTROL XL) PO SCH (12:14)
[2019-02-09 12:51] VITALS: BP_SYST 130
[2019-02-09 16:58] VITALS: BP_SYST 128
[2019-02-09] MEDS: EPOETIN ALFA 3,000 UNITS/ML VIAL SUBCUT SCH (18:08)
[2019-02-09 20:00] VITALS: BP_SYST 146
[2019-02-09] MEDS: BUDESONIDE 0.5 MG/2 ML AMPUL.NEB INH SCH (20:02)
[2019-02-09] MEDS: PIPERACILLIN/TAZOBACTAM 2.25 GM/ D5W 50 ML IV SCH ×2 (20:08)
[2019-02-09] MEDS: FERROUS SULFATE 325 MG TABLET.DR PO SCH (20:09)
[2019-02-10] MEDS: HEPARIN SODIUM,PORCINE 3000 UNITS/0.6 ML BOLUS IVP PRN (00:37)
[2019-02-10] MEDS: HEPARIN 25,000 UNITS in 250 ML PREMIX IV PRN ×2 (00:49→16:53)
[2019-02-10 01:02] VITALS: BP_SYST 133
[2019-02-10] MEDS: ALBUTEROL SULFATE 0.083% 2.5 MG/3 ML VIAL.NEB INH SCH ×6 (03:00→23:00)
[2019-02-10] MEDS: IPRATROPIUM BROM 0.5 MG/2.5 ML VIAL.NEB (ATROVENT) INH SCH ×6 (03:00→23:00)
[2019-02-10] MEDS: fentaNYL CITRATE/PF 100 MCG/2 ML AMP IVP PRN (03:00)
[2019-02-10] MEDS: HYDROmorphone 2 MG/ML VIAL IVP PRN ×6 (03:42→23:13)
[2019-02-10] MEDS ORDERED: HYDROmorphone 1 MG INJ. 1 MG/ML AMPUL IM PRN (03:45)
[2019-02-10] MEDS: PIPERACILLIN/TAZOBACTAM 2.25 GM/ D5W 50 ML IV SCH ×6 (04:16→20:08)
[2019-02-10] MEDS: GLUCOSE 15 GM GEL (in 37.5 GM TUBE) PO PRN ×3 (05:47→06:31)
[2019-02-10] MEDS ORDERED: DEXTROSE 50% JECT 50 ML DISP.SYRIN IVP ONE (07:00)
[2019-02-10] MEDS: D5NS 1,000 ML IV SCH ×2 (07:07→20:10)
[2019-02-10] MEDS: BUDESONIDE 0.5 MG/2 ML AMPUL.NEB INH SCH ×2 (07:15→20:02)
[2019-02-10 07:41] LABS: CALCIUM 9.7 mg/dL (8.4-11.0); POTASSIUM 5.2 mmol/L (3.5-5.1); VANCOMYCIN,RANDOM 12.9 ug/mL
[2019-02-10 07:48] LABS: CREATININE 7.58 mg/dL (0.55-1.30)
[2019-02-10 08:37] VITALS: BP_SYST 121
[2019-02-10] MEDS: METOPROLOL SUCCINATE 50 MG TAB.SR.24H (TOPROL XL) PO SCH (08:46)
[2019-02-10] MEDS: FUROSEMIDE 40 MG TABLET PO SCH (08:47)
[2019-02-10] MEDS: LOSARTAN POTASSIUM 25 MG TABLET PO SCH (08:47)
[2019-02-10] MEDS: ISOSORBIDE MONONITRATE 30 MG TAB.ER.24H PO SCH (08:48)
[2019-02-10] MEDS: ATORVASTATIN 20 MG TABLET PO SCH (08:49)
[2019-02-10] MEDS: CILOSTAZOL 50 MG TABLET (PLETAL) PO SCH ×2 (08:49→21:23)
[2019-02-10] MEDS: CALCIUM ACETATE 667 MG CAP PO SCH ×3 (08:50→17:43)
[2019-02-10] MEDS: FERROUS SULFATE 325 MG TABLET.DR PO SCH ×2 (08:51→21:23)
[2019-02-10] MEDS: METOLAZONE 5 MG TABLET PO SCH (08:51)
[2019-02-10] MEDS: PANTOPRAZOLE SODIUM 40 MG TAB PO SCH (08:51)
[2019-02-10] MEDS: ASPIRIN 325 MG TABLET (ECOTRIN) PO SCH (08:51)
[2019-02-10] MEDS: FENOFIBRATE 160 MG TABLET PO SCH (08:52)
[2019-02-10] MEDS: FOLIC ACID 1 MG TABLET PO SCH (08:52)
[2019-02-10] MEDS: glipiZIDE XL 5 MG TAB ( GLUCOTROL XL) PO SCH (08:52)
[2019-02-10 12:00] VITALS: BP_SYST 121
[2019-02-10 16:33] VITALS: BP_SYST 131
[2019-02-10] MEDS: EPOETIN ALFA 3,000 UNITS/ML VIAL SUBCUT SCH (17:43)
[2019-02-10 20:00] VITALS: BP_SYST 129
[2019-02-10] MEDS: INSULIN REGULAR, HUMAN 100 UNITS/ML, 10 ML VIAL (humuLIN R) SUBCUT PRN (21:23)
[2019-02-11 00:55] VITALS: BP_SYST 123
[2019-02-11] MEDS: HYDROmorphone 2 MG/ML VIAL IVP PRN ×8 (02:03→22:21)
[2019-02-11] MEDS: IPRATROPIUM BROM 0.5 MG/2.5 ML VIAL.NEB (ATROVENT) INH SCH ×6 (03:00→23:44)
[2019-02-11] MEDS: ALBUTEROL SULFATE 0.083% 2.5 MG/3 ML VIAL.NEB INH SCH ×6 (03:00→23:44)
[2019-02-11] MEDS: PIPERACILLIN/TAZOBACTAM 2.25 GM/ D5W 50 ML IV SCH ×6 (03:35→22:18)
[2019-02-11] MEDS: VANCOMYCIN HCL 1,000 MG in NS 250 ML IV SCH (05:06)
[2019-02-11 05:55] LABS: BASOPHILS # (AUTO) 0.1 K/uL (0.0-0.2); BASOPHILS % (AUTO) 1.2 % (0.0-2.0); EOSINOPHILS # (AUTO) 0.3 K/uL (0.0-0.4); EOSINOPHILS % (AUTO) 2.8 % (0.0-4.0); HEMATOCRIT 28.9 % (36-54); HEMOGLOBIN 8.9 g/dL (14.0-18.0); LYMPHOCYTES # (AUTO) 1.1 K/uL (1.0-5.5); LYMPHOCYTES % (AUTO) 10.8 % (20.5-51.5); MEAN CORPUSCULAR HEMOGLOBIN 25 pg (27-31); MEAN CORPUSCULAR HGB CONC 31 % (32-36); MEAN CORPUSCULAR VOLUME 82 fL (79.0-98.0); MONOCYTES # (AUTO) 1.2 K/uL (0.0-1.0); NEUTROPHILS # (AUTO) 7.2 K/uL (1.8-7.7); NEUTROPHILS % (AUTO) 73.2 % (40.0-70.0); PLATELET COUNT (AUTO) 351 K/uL (130-430); RED BLOOD CELL COUNT(AUTO) 3.53 MIL/uL (4.2-6.2); RED CELL DISTRIBUTION WIDTH 19.6 % (9.0-15.0); WHITE BLOOD COUNT (AUTO) 9.9 K/uL (4.8-10.8)
[2019-02-11 06:06] LABS: INR 1.4 (0.80-1.20); PROTHROMBIN TIME 14.4 SECS (9.5-12.5)
[2019-02-11 06:53] LABS: CALCIUM 8.9 mg/dL (8.4-11.0); CREATININE 5.99 mg/dL (0.55-1.30); POTASSIUM 4.8 mmol/L (3.5-5.1); TOTAL BILIRUBIN 0.7 mg/dL (0.0-1.0)
[2019-02-11] MEDS: BUDESONIDE 0.5 MG/2 ML AMPUL.NEB INH SCH ×2 (07:57→20:24)
[2019-02-11] MEDS: FOLIC ACID 1 MG TABLET PO SCH (08:18)
[2019-02-11] MEDS: glipiZIDE XL 5 MG TAB ( GLUCOTROL XL) PO SCH (08:18)
[2019-02-11] MEDS: ATORVASTATIN 20 MG TABLET PO SCH (08:18)
[2019-02-11] MEDS: CALCIUM ACETATE 667 MG CAP PO SCH ×3 (08:18→17:49)
[2019-02-11] MEDS: CILOSTAZOL 50 MG TABLET (PLETAL) PO SCH ×2 (08:18→22:17)
[2019-02-11] MEDS: FUROSEMIDE 40 MG TABLET PO SCH (08:19)
[2019-02-11] MEDS: FERROUS SULFATE 325 MG TABLET.DR PO SCH ×2 (08:19→22:17)
[2019-02-11] MEDS: METOLAZONE 5 MG TABLET PO SCH (08:19)
[2019-02-11 08:20] VITALS: BP_SYST 160
[2019-02-11] MEDS: METOPROLOL SUCCINATE 50 MG TAB.SR.24H (TOPROL XL) PO SCH (08:20)
[2019-02-11] MEDS: PANTOPRAZOLE SODIUM 40 MG TAB PO SCH (08:20)
[2019-02-11] MEDS: FENOFIBRATE 160 MG TABLET PO SCH (08:20)
[2019-02-11] MEDS: HEPARIN 25,000 UNITS in 250 ML PREMIX IV PRN ×4 (08:31→23:39)
[2019-02-11] MEDS ORDERED: BALSAM PERU/CASTOR OIL 60 GM OINT...G. TP ONE (09:15)
[2019-02-11] MEDS: ISOSORBIDE MONONITRATE 30 MG TAB.ER.24H PO SCH (12:37)
[2019-02-11] MEDS: LOSARTAN POTASSIUM 25 MG TABLET PO SCH (12:37)
[2019-02-11] MEDS: ASPIRIN 325 MG TABLET (ECOTRIN) PO SCH (12:37)
[2019-02-11] MEDS: D5NS 1,000 ML IV SCH (12:39)
[2019-02-11 12:42] VITALS: BP_SYST 119
[2019-02-11 17:44] VITALS: BP_SYST 114
[2019-02-11] MEDS: EPOETIN ALFA 3,000 UNITS/ML VIAL SUBCUT SCH (17:51)
[2019-02-11] MEDS: ALBUTEROL SULFATE 0.083% 2.5 MG/3 ML VIAL.NEB INH PRN (17:58)
[2019-02-11] MEDS: IPRATROPIUM BROM 0.5 MG/2.5 ML VIAL.NEB (ATROVENT) INH PRN (17:59)
[2019-02-11 22:15] VITALS: BP_SYST 119
[2019-02-11] MEDS: INSULIN REGULAR, HUMAN 100 UNITS/ML, 10 ML VIAL (humuLIN R) SUBCUT PRN (22:22)
[2019-02-11] MEDS: HEPARIN SODIUM,PORCINE 3000 UNITS/0.6 ML BOLUS IVP PRN (23:36)
[2019-02-12] MEDS ORDERED: ONDANSETRON HCL 4 MG/2 ML VIAL IVP PRN (00:15)
[2019-02-12 00:47] VITALS: BP_SYST 120
[2019-02-12 02:08] VITALS: BP_SYST 104
[2019-02-12] MEDS: HYDROmorphone 2 MG/ML VIAL IVP PRN ×4 (02:10→21:30)
[2019-02-12] MEDS: IPRATROPIUM BROM 0.5 MG/2.5 ML VIAL.NEB (ATROVENT) INH SCH ×7 (02:53→23:00)
[2019-02-12] MEDS: ALBUTEROL SULFATE 0.083% 2.5 MG/3 ML VIAL.NEB INH SCH ×7 (02:53→23:00)
[2019-02-12] MEDS: PIPERACILLIN/TAZOBACTAM 2.25 GM/ D5W 50 ML IV SCH ×6 (03:56→21:24)
[2019-02-12] MEDS: INSULIN REGULAR, HUMAN 100 UNITS/ML, 10 ML VIAL (humuLIN R) SUBCUT PRN ×2 (06:51→21:38)
[2019-02-12] MEDS: BUDESONIDE 0.5 MG/2 ML AMPUL.NEB INH SCH ×2 (07:37→18:32)
[2019-02-12] MEDS: BALSAM PERU/CASTOR OIL 60 GM OINT...G. TP SCH ×2 (09:00→15:46)
[2019-02-12 09:28] LABS: ALBUMIN 2.1 g/dL (3.4-4.8); TOTAL BILIRUBIN 0.9 mg/dL (0.0-1.0)
[2019-02-12 09:32] LABS: BILIRUBIN,DIRECT 0.5 mg/dL (0.0-0.3)
[2019-02-12] MEDS: HEPARIN 25,000 UNITS in 250 ML PREMIX IV PRN (10:00)
[2019-02-12] MEDS: CILOSTAZOL 50 MG TABLET (PLETAL) PO SCH ×2 (10:03→21:24)
[2019-02-12] MEDS: FUROSEMIDE 40 MG TABLET PO SCH (10:03)
[2019-02-12] MEDS: LOSARTAN POTASSIUM 25 MG TABLET PO SCH (10:03)
[2019-02-12] MEDS: ASPIRIN 325 MG TABLET (ECOTRIN) PO SCH (10:04)
[2019-02-12] MEDS: PANTOPRAZOLE SODIUM 40 MG TAB PO SCH (10:04)
[2019-02-12] MEDS: FENOFIBRATE 160 MG TABLET PO SCH (10:04)
[2019-02-12] MEDS: FERROUS SULFATE 325 MG TABLET.DR PO SCH ×2 (10:04→21:24)
[2019-02-12] MEDS: ATORVASTATIN 20 MG TABLET PO SCH (10:04)
[2019-02-12] MEDS: ISOSORBIDE MONONITRATE 30 MG TAB.ER.24H PO SCH (10:04)
[2019-02-12] MEDS: METOLAZONE 5 MG TABLET PO SCH (10:04)
[2019-02-12] MEDS: FOLIC ACID 1 MG TABLET PO SCH (10:04)
[2019-02-12] MEDS: glipiZIDE XL 5 MG TAB ( GLUCOTROL XL) PO SCH (10:05)
[2019-02-12] MEDS: METOPROLOL SUCCINATE 50 MG TAB.SR.24H (TOPROL XL) PO SCH (10:05)
[2019-02-12] MEDS: CALCIUM ACETATE 667 MG CAP PO SCH ×3 (10:05→18:25)
[2019-02-12 11:17] VITALS: BP_SYST 127
[2019-02-12 12:54] VITALS: BP_SYST 127
[2019-02-12 16:57] VITALS: BP_SYST 121
[2019-02-12] MEDS: EPOETIN ALFA 3,000 UNITS/ML VIAL SUBCUT SCH (17:00)
[2019-02-12 21:22] VITALS: BP_SYST 135
[2019-02-13] MEDS: HYDROmorphone 2 MG/ML VIAL IVP PRN ×6 (00:31→21:57)
[2019-02-13 01:05] VITALS: BP_SYST 120
[2019-02-13] MEDS: IPRATROPIUM BROM 0.5 MG/2.5 ML VIAL.NEB (ATROVENT) INH SCH ×6 (03:00→23:00)
[2019-02-13] MEDS: ALBUTEROL SULFATE 0.083% 2.5 MG/3 ML VIAL.NEB INH SCH ×6 (03:00→20:05)
[2019-02-13] MEDS: PIPERACILLIN/TAZOBACTAM 2.25 GM/ D5W 50 ML IV SCH ×6 (03:40→20:47)
[2019-02-13] MEDS: VANCOMYCIN HCL 1,000 MG in NS 250 ML IV SCH (05:43)
[2019-02-13] MEDS: INSULIN REGULAR, HUMAN 100 UNITS/ML, 10 ML VIAL (humuLIN R) SUBCUT PRN ×2 (06:07→20:53)
[2019-02-13] MEDS: BUDESONIDE 0.5 MG/2 ML AMPUL.NEB INH SCH ×2 (07:31→19:00)
[2019-02-13 08:00] VITALS: BP_SYST 140
[2019-02-13] MEDS: PANTOPRAZOLE SODIUM 40 MG TAB PO SCH (08:44)
[2019-02-13] MEDS: METOPROLOL SUCCINATE 50 MG TAB.SR.24H (TOPROL XL) PO SCH (08:44)
[2019-02-13] MEDS: METOLAZONE 5 MG TABLET PO SCH (08:44)
[2019-02-13] MEDS: ASPIRIN 325 MG TABLET (ECOTRIN) PO SCH (08:44)
[2019-02-13] MEDS: CALCIUM ACETATE 667 MG CAP PO SCH ×3 (08:44→16:52)
[2019-02-13] MEDS: FUROSEMIDE 40 MG TABLET PO SCH (08:45)
[2019-02-13] MEDS: FENOFIBRATE 160 MG TABLET PO SCH (08:45)
[2019-02-13] MEDS: FOLIC ACID 1 MG TABLET PO SCH (08:45)
[2019-02-13] MEDS: FERROUS SULFATE 325 MG TABLET.DR PO SCH ×2 (08:45→20:47)
[2019-02-13] MEDS: ISOSORBIDE MONONITRATE 30 MG TAB.ER.24H PO SCH (08:45)
[2019-02-13] MEDS: ATORVASTATIN 20 MG TABLET PO SCH (08:46)
[2019-02-13] MEDS: CILOSTAZOL 50 MG TABLET (PLETAL) PO SCH ×2 (08:46→20:47)
[2019-02-13] MEDS: glipiZIDE XL 5 MG TAB ( GLUCOTROL XL) PO SCH (08:46)
[2019-02-13] MEDS: LOSARTAN POTASSIUM 25 MG TABLET PO SCH (08:46)
[2019-02-13] MEDS: BALSAM PERU/CASTOR OIL 60 GM OINT...G. TP SCH (08:53)
[2019-02-13 12:00] VITALS: BP_SYST 130
[2019-02-13 16:00] VITALS: BP_SYST 119
[2019-02-13] MEDS: EPOETIN ALFA 3,000 UNITS/ML VIAL SUBCUT SCH (16:52)
[2019-02-13] MEDS: ENOXAPARIN SODIUM 30 MG/0.3 ML SYRINGE SUBCUT ONE ×2 (16:53→16:55)
[2019-02-13] MEDS: ALBUTEROL SULFATE 0.083% 2.5 MG/3 ML VIAL.NEB INH PRN (20:06)
[2019-02-13] MEDS: IPRATROPIUM BROM 0.5 MG/2.5 ML VIAL.NEB (ATROVENT) INH PRN (20:06)
[2019-02-13] MEDS ORDERED: BUDESONIDE 0.5 MG/2 ML AMPUL.NEB ONE (20:37)
[2019-02-13 20:43] VITALS: BP_SYST 128
[2019-02-14 00:52] VITALS: BP_SYST 139
[2019-02-14] MEDS: IPRATROPIUM BROM 0.5 MG/2.5 ML VIAL.NEB (ATROVENT) INH SCH ×6 (03:00→23:00)
[2019-02-14] MEDS: ALBUTEROL SULFATE 0.083% 2.5 MG/3 ML VIAL.NEB INH SCH ×6 (03:00→23:00)
[2019-02-14] MEDS: HYDROmorphone 2 MG/ML VIAL IVP PRN ×6 (04:20→21:36)
[2019-02-14] MEDS: PIPERACILLIN/TAZOBACTAM 2.25 GM/ D5W 50 ML IV SCH ×6 (04:30→20:28)
[2019-02-14] MEDS: INSULIN REGULAR, HUMAN 100 UNITS/ML, 10 ML VIAL (humuLIN R) SUBCUT PRN ×2 (06:09→17:15)
[2019-02-14] MEDS: BUDESONIDE 0.5 MG/2 ML AMPUL.NEB INH SCH ×3 (07:00→19:00)
[2019-02-14 07:15] LABS: BASOPHILS # (AUTO) 0.1 K/uL (0.0-0.2); EOSINOPHILS # (AUTO) 0.3 K/uL (0.0-0.4); EOSINOPHILS % (AUTO) 3.1 % (0.0-4.0); HEMATOCRIT 27.4 % (36-54); HEMOGLOBIN 8.5 g/dL (14.0-18.0); LYMPHOCYTES # (AUTO) 0.8 K/uL (1.0-5.5); LYMPHOCYTES % (AUTO) 7.6 % (20.5-51.5); MEAN CORPUSCULAR HEMOGLOBIN 25 pg (27-31); MEAN CORPUSCULAR HGB CONC 31 % (32-36); MEAN CORPUSCULAR VOLUME 82 fL (79.0-98.0); MONOCYTES # (AUTO) 0.9 K/uL (0.0-1.0); MONOCYTES % (AUTO) 8.8 % (1.7-9.3); NEUTROPHILS # (AUTO) 8.2 K/uL (1.8-7.7); NEUTROPHILS % (AUTO) 79.5 % (40.0-70.0); PLATELET COUNT (AUTO) 385 K/uL (130-430); RED BLOOD CELL COUNT(AUTO) 3.35 MIL/uL (4.2-6.2); RED CELL DISTRIBUTION WIDTH 19.5 % (9.0-15.0); WHITE BLOOD COUNT (AUTO) 10.4 K/uL (4.8-10.8)
[2019-02-14 08:00] VITALS: BP_SYST 121
[2019-02-14] MEDS: glipiZIDE XL 5 MG TAB ( GLUCOTROL XL) PO SCH (08:09)
[2019-02-14] MEDS: FOLIC ACID 1 MG TABLET PO SCH (08:09)
[2019-02-14] MEDS: FENOFIBRATE 160 MG TABLET PO SCH (08:10)
[2019-02-14] MEDS: LOSARTAN POTASSIUM 25 MG TABLET PO SCH (08:10)
[2019-02-14] MEDS: ISOSORBIDE MONONITRATE 30 MG TAB.ER.24H PO SCH (08:10)
[2019-02-14] MEDS: FERROUS SULFATE 325 MG TABLET.DR PO SCH ×2 (08:10→20:32)
[2019-02-14] MEDS: PANTOPRAZOLE SODIUM 40 MG TAB PO SCH (08:10)
[2019-02-14] MEDS: ASPIRIN 325 MG TABLET (ECOTRIN) PO SCH (08:10)
[2019-02-14] MEDS: CALCIUM ACETATE 667 MG CAP PO SCH ×4 (08:11→17:16)
[2019-02-14] MEDS: ATORVASTATIN 20 MG TABLET PO SCH (08:11)
[2019-02-14] MEDS: METOPROLOL SUCCINATE 50 MG TAB.SR.24H (TOPROL XL) PO SCH (08:11)
[2019-02-14] MEDS: METOLAZONE 5 MG TABLET PO SCH (08:12)
[2019-02-14] MEDS: CILOSTAZOL 50 MG TABLET (PLETAL) PO SCH ×2 (08:12→20:32)
[2019-02-14] MEDS: BALSAM PERU/CASTOR OIL 60 GM OINT...G. TP SCH (08:14)
[2019-02-14] MEDS: FUROSEMIDE 40 MG TABLET PO SCH (08:18)
[2019-02-14] MEDS: ENOXAPARIN SODIUM 30 MG/0.3 ML SYRINGE SUBCUT SCH (08:18)
[2019-02-14 08:47] LABS: CALCIUM 9.3 mg/dL (8.4-11.0); CREATININE 5.62 mg/dL (0.55-1.30); POTASSIUM 3.8 mmol/L (3.5-5.1)
[2019-02-14 12:49] VITALS: BP_SYST 132
[2019-02-14 16:22] VITALS: BP_SYST 142
[2019-02-14] MEDS ORDERED: EPOETIN ALFA 3,000 UNITS/ML VIAL SUBCUT SCH (17:00)
[2019-02-14] MEDS: APIXABAN 2.5 MG TABLET PO SCH (20:32)
[2019-02-14 20:39] VITALS: BP_SYST 137
[2019-02-15] MEDS: HYDROmorphone 2 MG/ML VIAL IVP PRN ×6 (00:26→18:49)
[2019-02-15 00:55] VITALS: BP_SYST 122
[2019-02-15] MEDS: IPRATROPIUM BROM 0.5 MG/2.5 ML VIAL.NEB (ATROVENT) INH SCH ×4 (03:00→19:49)
[2019-02-15] MEDS: ALBUTEROL SULFATE 0.083% 2.5 MG/3 ML VIAL.NEB INH SCH ×4 (03:00→19:49)
[2019-02-15] MEDS: PIPERACILLIN/TAZOBACTAM 2.25 GM/ D5W 50 ML IV SCH ×6 (04:29→20:10)
[2019-02-15] MEDS ORDERED: VANCOMYCIN HCL 1,000 MG in NS 250 ML IV SCH (06:00)
[2019-02-15 08:00] VITALS: BP_SYST 122
[2019-02-15] MEDS: BUDESONIDE 0.5 MG/2 ML AMPUL.NEB INH SCH ×2 (08:09→20:04)
[2019-02-15] MEDS: LOSARTAN POTASSIUM 25 MG TABLET PO SCH (08:54)
[2019-02-15] MEDS: ISOSORBIDE MONONITRATE 30 MG TAB.ER.24H PO SCH (08:54)
[2019-02-15] MEDS: FUROSEMIDE 40 MG TABLET PO SCH (08:54)
[2019-02-15] MEDS: METOLAZONE 5 MG TABLET PO SCH (08:55)
[2019-02-15] MEDS: METOPROLOL SUCCINATE 50 MG TAB.SR.24H (TOPROL XL) PO SCH (08:55)
[2019-02-15] MEDS: APIXABAN 2.5 MG TABLET PO SCH (09:00)
[2019-02-15] MEDS: ENOXAPARIN SODIUM 30 MG/0.3 ML SYRINGE SUBCUT SCH (09:00)
[2019-02-15] MEDS: FERROUS SULFATE 325 MG TABLET.DR PO SCH (09:06)
[2019-02-15] MEDS: glipiZIDE XL 5 MG TAB ( GLUCOTROL XL) PO SCH (09:06)
[2019-02-15] MEDS: PANTOPRAZOLE SODIUM 40 MG TAB PO SCH (09:06)
[2019-02-15] MEDS: FENOFIBRATE 160 MG TABLET PO SCH (09:06)
[2019-02-15] MEDS: FOLIC ACID 1 MG TABLET PO SCH (09:07)
[2019-02-15] MEDS: CILOSTAZOL 50 MG TABLET (PLETAL) PO SCH (09:07)
[2019-02-15] MEDS: ATORVASTATIN 20 MG TABLET PO SCH (09:07)
[2019-02-15] MEDS: ASPIRIN 325 MG TABLET (ECOTRIN) PO SCH (09:07)
[2019-02-15] MEDS: CALCIUM ACETATE 667 MG CAP PO SCH ×3 (09:07→17:30)
[2019-02-15] MEDS: INSULIN REGULAR, HUMAN 100 UNITS/ML, 10 ML VIAL (humuLIN R) SUBCUT PRN (11:35)
[2019-02-15 12:40] VITALS: BP_SYST 129
[2019-02-15 16:36] VITALS: BP_SYST 127
[2019-02-15 17:52] VITALS: BP_SYST 127
[2019-02-15 18:01] VITALS: BP_SYST 127
[2019-02-15] MEDS: BALSAM PERU/CASTOR OIL 60 GM OINT...G. TP SCH (18:30)
[2019-02-17] MEDS ORDERED: VANCOMYCIN HCL IV SCH (06:00)
[2019-02-17] MEDS ORDERED: [UNRECOGNIZED DRUG - OTHER] IV SCH (06:00)
== END 2019-02-15 20:41 | DRG 299 ==
LOC: SED 20:39 → SMU 02-09 03:06
PROVIDERS: ADMIT Internal Medicine Hospice and Palliative Medicine; ATTEND Internal Medicine Hospice and Palliative Medicine
PROC: 5A1D70Z Performance of Urinary Filtration, Intermittent, Less than 6 Hours Per Day (ICD-10-PCS; principal; 2019-02-10)
PROC: 5A1D70Z Performance of Urinary Filtration, Intermittent, Less than 6 Hours Per Day (ICD-10-PCS; 2019-02-12)
PROC: 5A1D70Z Performance of Urinary Filtration, Intermittent, Less than 6 Hours Per Day (ICD-10-PCS; 2019-02-15)
DX: E11.52 Type 2 diabetes mellitus with diabetic peripheral angiopathy with gangrene (principal); N18.6 End stage renal disease; I12.0 Hypertensive chronic kidney disease with stage 5 chronic kidney disease or end stage renal disease; L03.116 Cellulitis of left lower limb; J96.10 Chronic respiratory failure, unspecified whether with hypoxia or hypercapnia; E11.22 Type 2 diabetes mellitus with diabetic chronic kidney disease; M62.262 Nontraumatic ischemic infarction of muscle, left lower leg; I25.5 Ischemic cardiomyopathy; D63.1 Anemia in chronic kidney disease; E78.5 Hyperlipidemia, unspecified; E11.621 Type 2 diabetes mellitus with foot ulcer; F17.200 Nicotine dependence, unspecified, uncomplicated; I25.10 Atherosclerotic heart disease of native coronary artery without angina pectoris; I99.8 Other disorder of circulatory system; J44.9 Chronic obstructive pulmonary disease, unspecified; Z82.49 Family history of ischemic heart disease and other diseases of the circulatory system; Z99.2 Dependence on renal dialysis; Z95.1 Presence of aortocoronary bypass graft
CPT/HCPCS: 36415; 36600; 71045; 80048; 80053; 80076; 80202-TC; 82803-TC; 82962; 83605; 85025; 85610-TC; 85730-TC; 87040-TC; 87081; 90935; 90937; 93005; 93306; 93923; 94640; 94760; 96365; 96366; 96367; 96375; 96376; 99285; J0696; J0885; J1170; J1200; J1644; J1650; J1815; J2060; J2270; J2405; J2543; J3010; J3370; J7030; J7042; J7050; J7060; J7613; J7626

== ENCOUNTER 2020-02-07 01:01 | Emergency (ER) | payer OTHER, MEDICAID ==
[~2020-02-07] VITALS: Ht 170.2 cm; Wt 86.2 kg
[2020-02-07 01:01] VITALS: BP_SYST 120
[~2020-02-07 01:01] MED LIST changes: -CALC667T5 PO; +CALC667T6 PO; -ERGO500020 PO; -INSU100V SQ; -SPIRIVA INH
--- NOTE | 2020-02-07 01:05 | NUR ---
Placed in room 3 . Placed on desk monitor, blood pressure machine and pulse oximeter. To gown for exam. Side rails up.
--- NOTE | 2020-02-07 01:10 | NUR ---
ER at bedside examining patient.
--- NOTE | 2020-02-07 01:20 | NUR ---
Pt BIBA from home rectal, lower back pain x 1 day. Pt states pain has been intermittent for 9 months but became unbearable today. Stool appears tarry for the last 4 months. Rates pain 05/27. HX of DM, B/L below the knee amputation. Denies SOB, fever, CP, n/v.
--- NOTE | 2020-02-07 01:30 | NUR ---
Pt had bowel movement on gurney, pt cleaned and assessed. Stool appears dark tarry type stool w/ tinged blood around the anus. Pt tolerated well, rates pain 10/10.
[2020-02-07] MEDS ORDERED: MORPHINE 2 MG/ML INJ. SYRINGE IM ONE ×2 (01:45)
--- NOTE | 2020-02-07 01:45 | NUR ---
Rectal exam performed by with BARBARA Fried and BABRARA Deras at bedside during procedure. Patient tolerated well.
--- NOTE | 2020-02-07 02:15 | NUR ---
Pt complaining of pain 10/10, given Ketamine and morphine. Tolerated well, no respiratory distress.
[2020-02-07 02:23] LABS: BASOPHILS # (AUTO) 0.1 K/uL (0.0-0.2); BASOPHILS % (AUTO) 0.7 % (0.0-2.0); EOSINOPHILS # (AUTO) 0.2 K/uL (0.0-0.4); EOSINOPHILS % (AUTO) 2.3 % (0.0-4.0); HEMOGLOBIN 12.1 g/dL (14.0-18.0); LYMPHOCYTES # (AUTO) 1.4 K/uL (1.0-5.5); LYMPHOCYTES % (AUTO) 18.4 % (20.5-51.5); MEAN CORPUSCULAR HEMOGLOBIN 26 pg (27-31); MEAN CORPUSCULAR HGB CONC 32 % (32-36); MEAN CORPUSCULAR VOLUME 83 fL (79.0-98.0); MONOCYTES # (AUTO) 0.6 K/uL (0.0-1.0); NEUTROPHILS # (AUTO) 5.4 K/uL (1.8-7.7); NEUTROPHILS % (AUTO) 70.6 % (40.0-70.0); PLATELET COUNT (AUTO) 351 K/uL (130-430); RED CELL DISTRIBUTION WIDTH 16.4 % (9.0-15.0); WHITE BLOOD COUNT (AUTO) 7.6 K/uL (4.8-10.8)
[2020-02-07] MEDS ORDERED: IOHEXOL 100 ML IV ONE (02:27)
[2020-02-07] MEDS ORDERED: KETAMINE 30 MG/3 ML SYRINGE IVP ONE ×2 (02:30→04:00)
[2020-02-07 02:40] LABS: POTASSIUM 5.4 mmol/L (3.5-5.1)
[2020-02-07 02:45] LABS: ALBUMIN 1.8 g/dL (3.4-4.8); TOTAL BILIRUBIN 0.5 mg/dL (0.0-1.0)
[2020-02-07 02:53] LABS: CREATININE 7.64 mg/dL (0.55-1.30)
--- NOTE | 2020-02-07 03:30 | NUR ---
Pt asked for [place] [employer] contact information. Pt does not remember name or number, states he will contact family in the morning to provide information.
[2020-02-07] MEDS ORDERED: SODIUM POLYSTYRENE SULFONATE 15 GM/60 ML UDBTL PO ONE (04:00)
--- NOTE | 2020-02-07 04:00 | NUR ---
End of life care decisions discussed with Patient. Opportunity for questions and concerns addressed. Patient's code status is Full Code paperwork completed and placed in chart.
[2020-02-07 04:30] VITALS: BP_SYST 100
[2020-02-07] MEDS ORDERED: MORPHINE 2 MG/ML INJ. SYRINGE IVP PRN (04:30)
[2020-02-07] MEDS ORDERED: LORazepam 2 MG/ML VIAL IVP ONE (05:00)
[2020-02-07] MEDS ORDERED: D5NS 1,000 ML IV SCH (05:17)
[2020-02-07] MEDS ORDERED: ONDANSETRON HCL 4 MG/2 ML VIAL IVP PRN (05:30)
[2020-02-07] MEDS ORDERED: DOCUSATE SODIUM 100 MG/10 ML UDC PO PRN (05:30)
[2020-02-07] MEDS ORDERED: ACETAMINOPHEN 500 MG TABLET PO PRN (05:30)
[2020-02-07] MEDS ORDERED: HYDROcodone/ACETAMIN 7.5-325 MG TAB PO PRN (05:30)
[2020-02-07] MEDS ORDERED: ALBUTEROL SULFATE 0.083% 2.5 MG/3 ML VIAL.NEB INH ONE (05:45)
[2020-02-07] MEDS ORDERED: SODIUM BICARBONATE 8.4% JECT 50 MEQ/50 ML SYRINGE IVP ONE (05:45)
[2020-02-07] MEDS ORDERED: CALCIUM GLUCONATE 1 GM in NS 100 ML IV ONE (05:45)
[2020-02-07] MEDS ORDERED: CALCIUM GLUCONATE 1 GM/10 ML VIAL ONE (05:54)
[2020-02-07] MEDS ORDERED: SODIUM BICARBONATE 8.4% VIAL 50 MEQ/50 ML VIAL ONE (05:56)
--- NOTE | 2020-02-07 07:20 | NUR ---
Patient does not wish to proceed with medical care recommended by . Patient given information related to possible complications, up to and including , which could occur as a result of leaving hospital at this time. Patient verbalizes understanding of risks involved leaving against medical advice. Patient has signed AMA form. of pt (Gin[place]), , Myself bedside reinforcing the dangers and possible complications. Patient insists on leaving against medical advice.
[2020-02-07] MEDS ORDERED: PANTOPRAZOLE SODIUM 40 MG TAB PO SCH (09:00)
[2020-02-07 10:14] LABS: INR 1.2 (0.80-1.20); PROTHROMBIN TIME 12.1 SECS (9.5-12.5)
[2020-02-07 10:51] LABS: FREE T4 (FREE THYROXINE) 0.9 ng/dL (0.6-1.6); PHOSPHORUS 8.5 mg/dL (2.7-4.5); THYROID STIMULATING HORMONE 2.31 uIu/mL (0.34-4.82)
== END 2020-02-07 07:20 | disposition left against medical advice (07) ==
LOC: SED 01:01 → SMU 04:16 → UNDOADMIN 04:16 → UNDODISIN 07:20 → SMU 07:20
DX: E87.70 Fluid overload, unspecified (principal); E87.5 Hyperkalemia; E87.1 Hypo-osmolality and hyponatremia; A63.0 Anogenital (venereal) warts; K62.5 Hemorrhage of anus and rectum; R94.31 Abnormal electrocardiogram [ECG] [EKG]; I12.0 Hypertensive chronic kidney disease with stage 5 chronic kidney disease or end stage renal disease; E11.22 Type 2 diabetes mellitus with diabetic chronic kidney disease; N18.6 End stage renal disease; K21.9 Gastro-esophageal reflux disease without esophagitis; J44.9 Chronic obstructive pulmonary disease, unspecified; Z99.2 Dependence on renal dialysis; Z79.899 Other long term (current) drug therapy
CPT/HCPCS: 36415; 74177; 80053; 80061; 82150; 83036; 83605; 83690; 83735; 83880; 84100; 84439; 84443; 84484; 85025; 85610; 85730; 87081; 93005; 94640; 96372; 96374; 96375; 96376; 99291; J0610; J2270; J7613; Q9967; G0378; J2060